=== PATIENT | female | born 1975 | race African-American/Black ===

== ENCOUNTER 2023-04-16 09:16 | Emergency (ER) | payer SELFPAY ==
[~2023-04-16] VITALS: Ht 170.2 cm; Wt 127.3 kg
[~2023-04-16 09:16] MED LIST: AMOXICILLIN 50500 MG PO; ATENOLOL50 MG PO; LORTAB 5/500 501 TAB PO; MVI
[2023-04-16 09:26] VITALS: TEMP 98
[2023-04-16 10:12] LABS: COLLECTION METHOD CLEAN CATCH
[2023-04-16 10:37] LABS: BASO % 0.4 % (0.0-2.0); EOS # 0.2 K/mm3 (0.0-0.7); EOS % 2.2 % (0.0-4.0); GRAN # 7.7 K/mm3 (1.4-6.5); GRAN % 71.7 % (42.2-75.2); HEMATOCRIT 42.7 % (37.0-47.0); HEMOGLOBIN 14.6 g/dl (12.5-16.0); LYMPH # 2.2 K/mm3 (1.2-3.4); LYMPH % 20.6 % (20.0-51.0); MEAN CELL VOLUME 88 fl (80.0-100.0); MEAN CORPUSCULAR HEMOGLOBIN 30 pg (27-31); MEAN CORPUSCULAR HGB CONC 34 g/dl (33.0-37.0); MEAN PLATELET VOLUME 9.5 fl (7.4-10.4); MONO # 0.5 K/mm3 (0.1-0.6); MONO % 4.7 % (1.7-9.3); PLATELET COUNT 338 K/mm3 (130-400); RED BLOOD COUNT 4.84 M/mm3 (4.10-5.30); REDCELL DISTRIBUTION WIDTH-CV 11.9 % (11.5-14.5)
[2023-04-16 10:44] LABS: PH 5.5 (5.0-8.5); URINE APPEARANCE Cloudy (CLEAR/HAZY); URINE BLOOD 1+ (NEGATIVE); URINE COLOR Yellow (YELLOW); URINE GLUCOSE 2+ (NEGATIVE); URINE KETONE TRACE (NEGATIVE); URINE NITRATE Negative (NEGATIVE); URINE PROTEIN(semi-quant) Negative (NEGATIVE); URINE UROBILINOGEN 0.2 E.U/dL (0.2-1.0)
[2023-04-16 10:45] LABS: SQUAMOUS EPITHELIAL 0-2 /hpf (0-10); URINE BACTERIA Moderate /hpf (NONE SEEN); URINE RBC 0-2 /hpf (0-2)
[2023-04-16 11:03] LABS: ALBUMIN 4.1 gm/dL (3.5-5.0); BILIRUBIN,TOTAL 0.8 mg/dL (0.2-1.2); CALCIUM 9.8 mg/dL (8.4-10.2); CREATININE, serum 1.1 mg/dL (0.57-1.11); POTASSIUM 3.7 mmol/L (3.5-4.5); TOTAL PROTEIN 8.5 gm/dL (6.2-8.1)
[2023-04-16] MEDS ORDERED: GLUCOPHAGE500 MG/TAB PO (11:50)
[2023-04-16] MEDS ORDERED: CEPHALEXIN500 M1 PO (11:53)
[2023-04-16] MEDS ORDERED: DIFLUCAN150 MG PO (12:05)
[2023-04-16] MEDS ORDERED: FLAGYL500 MG PO (12:05)
[2023-04-16 12:24] VITALS: BP 131/91; PULSE 80
== END 2023-04-16 12:24 | disposition home or self-care (01) ==
LOC: COL.ER 09:16
PROVIDERS: Emergency Medicine; Physician Assistant
DX: N39.0 Urinary tract infection, site not specified (principal); E11.9 Type 2 diabetes mellitus without complications; B37.31 Acute candidiasis of vulva and vagina; N76.0 Acute vaginitis
CPT/HCPCS: J0696; J7030